=== PATIENT | male | born 1940 | race Caucasian/White ===

== ENCOUNTER 2021-11-10 16:43 | Observation (INO) | payer MEDICARE, BC ==
[~2021-11-10 16:43] MED LIST: Iopamidol 370 76% 100 ML VIAL ONE
[2021-11-10 17:26] LABS: #Basophils 0.1 10x3/uL (0.0-0.2); #Monocytes 0.7 10x3/uL (0.0-1.1); #Neutrophils 7.4 10x3/uL (1.5-8.4); %Basophils 0.6 % (0.0-2.0); %Eosinophils 0.5 % (0.0-6.0); %Lymphocytes 8.3 % (18.0-47.0); %Monocytes 7.3 % (0.0-10.0); %Neutrophils 83.1 % (40.0-75.0); Hemoglobin 16.6 g/dL (13.5-17.5); Mean Corpuscular HGB CONC 32.8 g/dL (32.0-36.0); Mean Corpuscular Hemoglobin 29.9 pg (27.0-33.0); Mean Corpuscular Volume 91.2 fl (81.2-95.1); Mean Platelet Volume 9.1 fl (7.4-10.4); Platelet Count 138 10x3/uL (150-450); RBC Distribution Width 13.7 % (11.5-14.5); Red Blood Cell (RBC) Count 5.55 10x6/uL (4.32-5.72); White Blood Cell (WBC) Count 8.9 10x3/uL (3.5-10.5)
[2021-11-10 17:38] LABS: ALT (SGPT) 17 U/L (8-55); AST (SGOT) 17 U/L (5-34); Albumin 4.5 g/dL (3.4-4.8); Alkaline Phosphatase 44 U/L (40-110); Anion Gap 19 mmol/L (10-20); BUN (Urea Nitrogen) 30 mg/dL (8.4-25.7); Bilirubin, Total 0.8 mg/dL (0.2-1.2); Calc. Creatinine Clearance 0 mL/min (70-130); Calcium 10.3 mg/dL (7.8-10.44); Carbon Dioxide 23 mmol/L (23-31); Chloride 102 mmol/L (98-107); Globulin 2.9 g/dL (2.4-3.5); Glucose 147 mg/dL (83-110); Lipase 25 U/L (8-78); Potassium 5.6 mmol/L (3.5-5.1); Protein, Total 7.4 g/dL (5.8-8.1); Sodium 138 mmol/L (136-145)
[2021-11-10] MEDS ORDERED: Morphine 4 MG/ML VIAL ONE ×2 (19:12→21:00)
[2021-11-10] MEDS ORDERED: Ondansetron PF 4 MG/2 ML Vial ONE (19:13)
[2021-11-10 23:12] LABS: SARS-CoV-2 NAA Rapid Test Not Detected (NotDetected)
[2021-11-10 23:59] LABS: Troponin I 0.019 ng/mL (< 0.028)
[2021-11-11 00:50] VITALS: BMI 23.0
[2021-11-11] MEDS ORDERED: Carvedilol 6.25 MG TAB PO SCH ×2 (02:30→08:00)
[2021-11-11] MEDS ORDERED: Sotalol HCl 80 MG TAB PO SCH ×2 (02:30→09:00)
[2021-11-11] MEDS ORDERED: Zolpidem Tartrate 5 MG TAB PO SCH ×2 (02:30→21:00)
[2021-11-11] MEDS ORDERED: Atorvastatin Calcium 10 MG TAB PO SCH ×2 (02:30→21:00)
[2021-11-11] MEDS ORDERED: Sodium Chloride 0.65% Nasal 44 ML BOT EA NARE PRN (08:31)
[2021-11-11] MEDS ORDERED: Labetalol HCl 100 MG/20 ML VIAL SLOW IVP PRN (08:31)
[2021-11-11] MEDS ORDERED: hydrALAZINE 20 MG/ML VIAL SLOW IVP PRN (08:31)
[2021-11-11] MEDS ORDERED: Morphine 2 MG/ML VIAL SLOW IVP PRN (08:31)
[2021-11-11] MEDS ORDERED: HYDROcodone/Acetaminophen 5/325 mg Tablet PO PRN (08:31)
[2021-11-11] MEDS ORDERED: Acetaminophen 500 MG TAB PO PRN (08:31)
[2021-11-11] MEDS ORDERED: Artificial Tear Sol 15 ML BOT EA EYE PRN (08:31)
[2021-11-11] MEDS ORDERED: Carvedilol 3.125 MG TAB PO SCH ×2 (08:45→17:00)
[2021-11-11] MEDS ORDERED: Alogliptin 6.25 MG TAB PO SCH (09:00)
[2021-11-11] MEDS ORDERED: Empagliflozin 10 MG TAB PO SCH (09:00)
[2021-11-11] MEDS ORDERED: Losartan Potassium 50 MG TAB PO SCH (09:00)
[2021-11-11] MEDS ORDERED: Finasteride 5 MG TAB PO SCH ×2 (09:00→21:00)
[2021-11-11] MEDS ORDERED: Enoxaparin Sodium 40 MG/0.4 ML SYRINGE SC SCH (09:00)
[2021-11-11] MEDS ORDERED: Aspirin Chewable 81 MG TAB PO SCH (09:00)
[2021-11-11 16:49] VITALS: TEMP 97.8
[2021-11-11 17:43] VITALS: BP 90/45
== END 2021-11-11 17:00 | disposition home or self-care (01) ==
LOC: CSHERS 16:43 → CSHTELE 23:36
PROVIDERS: ADMIT Internal Medicine; ATTEND Family Medicine
DX: R07.9 Chest pain, unspecified (principal); I25.10 Atherosclerotic heart disease of native coronary artery without angina pectoris; E87.5 Hyperkalemia; E11.9 Type 2 diabetes mellitus without complications; I49.5 Sick sinus syndrome; I50.9 Heart failure, unspecified; I10 Essential (primary) hypertension; N17.9 Acute kidney failure, unspecified; E78.5 Hyperlipidemia, unspecified; Z86.718 Personal history of other venous thrombosis and embolism; Z79.01 Long term (current) use of anticoagulants; Z95.1 Presence of aortocoronary bypass graft; Z79.4 Long term (current) use of insulin
CPT/HCPCS: 71275; 74174; 80053; 80061; 82962; 83690; 84484 ×3; 85025; 93005; 96372; 96374; 96375; 96376; 99285; G0378 ×3; U0002; 36415; 36416; J1650; J2270; J2405; Q9967

== ENCOUNTER 2021-12-05 07:25 | Outpatient (CLI) | payer MEDICARE, BC | END 2021-12-05 07:26 | disposition home or self-care (01) | LOC: CSHULT 07:25 | PROVIDERS: ATTEND Internal Medicine | DX: R10.11 Right upper quadrant pain (principal); K82.8 Other specified diseases of gallbladder | CPT/HCPCS: 76705 ==

== ENCOUNTER 2022-01-22 07:36 | Day surgery (SDC) | payer MEDICARE, BC ==
[2022-01-19 14:22] VITALS: BMI 22.6
[2022-01-22] MEDS ORDERED: Bupivacaine 0.25% HCL 30 ML VIAL ONE (09:49)
[2022-01-22] MEDS ORDERED: EPINEPHrine 1 MG/ML AMP ONE (09:50)
[2022-01-22] MEDS ORDERED: CEFAZOLIN 2 GM VIAL ONE (10:33)
[2022-01-22] MEDS ORDERED: Ondansetron PF 4 MG/2 ML Vial ONE (10:37)
[2022-01-22] MEDS ORDERED: PROPOFOL 20 ML ONE (10:37)
[2022-01-22] MEDS ORDERED: Lidocaine 1% PF 5 ML VIAL ONE (10:37)
[2022-01-22] MEDS ORDERED: Dexamethasone 4 mg/ml Vial ONE (10:37)
[2022-01-22] MEDS ORDERED: Rocuronium Bromide 10 MG/ML (10ML VIAL) ONE (10:37)
[2022-01-22] MEDS ORDERED: Fentanyl 100 MCG/2 ML VIAL ONE ×2 (10:37→12:27)
[2022-01-22] MEDS ORDERED: Fentanyl 100 MCG/2 ML VIAL SLOW IVP SCH (11:30)
[2022-01-22] MEDS ORDERED: SUGAMMADEX SODIUM 200 MG/2 ML VIAL ONE (11:37)
[2022-01-22] MEDS ORDERED: HYDROcodone/Acetaminophen 5/325 mg Tablet PO PRN (12:33)
[2022-01-22] MEDS ORDERED: Acetaminophen 325 MG TAB PO PRN (12:33)
[2022-01-22] MEDS ORDERED: HYDROcodone/Acetaminophen 5/325 mg Tablet ONE (13:34)
== END 2022-01-22 13:50 | disposition home or self-care (01) ==
LOC: CSHSDC 07:36
PROVIDERS: ATTEND Surgery
PROC: 0FT44ZZ Resection of Gallbladder, Percutaneous Endoscopic Approach (ICD-10-PCS; principal; 2022-01-22)
DX: K80.10 Calculus of gallbladder with chronic cholecystitis without obstruction (principal); K66.0 Peritoneal adhesions (postprocedural) (postinfection); E11.21 Type 2 diabetes mellitus with diabetic nephropathy; I13.0 Hypertensive heart and chronic kidney disease with heart failure and stage 1 through stage 4 chronic kidney disease, or unspecified chronic kidney disease; I50.22 Chronic systolic (congestive) heart failure; E11.22 Type 2 diabetes mellitus with diabetic chronic kidney disease; N18.31 Chronic kidney disease, stage 3a; E78.5 Hyperlipidemia, unspecified; I25.10 Atherosclerotic heart disease of native coronary artery without angina pectoris; K21.9 Gastro-esophageal reflux disease without esophagitis; Z20.822 Contact with and (suspected) exposure to COVID-19; Z79.82 Long term (current) use of aspirin; Z79.899 Other long term (current) drug therapy
CPT/HCPCS: 47562; 82962; C1776; 36416; 88304; J0171; J0690; J1100; J2405; J2704; J3010; S0020

== ENCOUNTER 2022-03-01 15:12 | Inpatient (IN) | payer MEDICARE, BC ==
[~2022-03-01 15:12] MED LIST changes: +Iopamidol 300 61% 100 ML VIAL FS ONE; -Iopamidol 370 76% 100 ML VIAL ONE
[2022-03-01 16:08] LABS: #Monocytes 0.5 10x3/uL (0.0-1.1); #Neutrophils 7.3 10x3/uL (1.5-8.4); %Basophils 0.5 % (0.0-2.0); %Eosinophils 0.5 % (0.0-6.0); %Lymphocytes 5.8 % (18.0-47.0); %Monocytes 5.6 % (0.0-10.0); %Neutrophils 87.4 % (40.0-75.0); Hemoglobin 16.3 g/dL (13.5-17.5); Mean Corpuscular HGB CONC 32.6 g/dL (32.0-36.0); Mean Corpuscular Hemoglobin 29.1 pg (27.0-33.0); Mean Corpuscular Volume 89.3 fl (81.2-95.1); Mean Platelet Volume 9.5 fl (7.4-10.4); Platelet Count 156 10x3/uL (150-450); RBC Distribution Width 15.9 % (11.5-14.5); White Blood Cell (WBC) Count 8.4 10x3/uL (3.5-10.5)
[2022-03-01 16:26] LABS: ALT (SGPT) 677 U/L (8-55); AST (SGOT) 1069 U/L (5-34); Albumin 4.3 g/dL (3.4-4.8); Alkaline Phosphatase 253 U/L (40-110); Anion Gap 18 mmol/L (10-20); BUN (Urea Nitrogen) 30 mg/dL (8.4-25.7); Bilirubin, Total 3.4 mg/dL (0.2-1.2); Calc. Creatinine Clearance 0 mL/min (70-130); Calcium 9.5 mg/dL (7.8-10.44); Carbon Dioxide 21 mmol/L (23-31); Chloride 106 mmol/L (98-107); Estimated GFR 49; Globulin 2.5 g/dL (2.4-3.5); Glucose 129 mg/dL (83-110); Protein, Total 6.8 g/dL (5.8-8.1); Sodium 140 mmol/L (136-145)
[2022-03-01 16:40] LABS: Lipase 5157 U/L (8-78)
[2022-03-01] MEDS ORDERED: Morphine 4 MG/ML VIAL ONE (18:05)
[2022-03-01] MEDS ORDERED: Ondansetron PF 4 MG/2 ML Vial ONE (18:05)
[2022-03-01] MEDS: Sodium Chloride 0.9% 1,000 ML IV SCH (19:00)
[2022-03-01 20:33] LABS: Magnesium 1.7 mg/dL (1.6-2.6)
[2022-03-01] MEDS ORDERED: Carvedilol 3.125 MG TAB PO SCH (21:00)
[2022-03-01] MEDS ORDERED: Atorvastatin Calcium 40 MG TAB ONE (21:22)
[2022-03-01] MEDS ORDERED: Carvedilol 3.125 MG TAB ONE (21:23)
[2022-03-01] MEDS ORDERED: Zolpidem Tartrate 5 MG TAB PO SCH (21:30)
[2022-03-01] MEDS ORDERED: Zolpidem Tartrate 5 MG TAB ONE (21:37)
[2022-03-01] MEDS: Atorvastatin Calcium 40 MG TAB PO SCH (21:44)
[2022-03-01] MEDS: Sotalol HCl 80 MG TAB PO SCH (21:45)
[2022-03-01] MEDS ORDERED: Piperacillin/Tazobactam 3.375 GM in Sodium Chloride 0.9% 100 ML IVPB SCH ×3 (21:45→23:59)
[2022-03-01] MEDS: Finasteride 5 MG TAB PO SCH (21:45)
[2022-03-01] MEDS ORDERED: Piperacillin/Tazobactam 3.375 GM VIAL ONE (23:39)
[2022-03-02] MEDS: Morphine 2 MG/ML VIAL SLOW IVP PRN ×2 (00:17→22:01)
[2022-03-02] MEDS ORDERED: Morphine 2 MG/ML VIAL ONE (00:23)
[2022-03-02] MEDS ORDERED: Piperacillin/Tazobactam 3.375 GM in Sodium Chloride 0.9% 100 ML IVPB SCH (02:00)
[2022-03-02] MEDS ORDERED: Piperacillin/Tazobactam 3.375 GM VIAL ONE ×2 (03:09→13:00)
[2022-03-02] MEDS: Piperacillin/Tazobactam 3.375 GM in Sodium Chloride 0.9% 100 ML IVPB SCH ×3 (03:18→21:59)
[2022-03-02 03:52] LABS: SARS-CoV-2 NAA Rapid Test Not Detected (NotDetected)
[2022-03-02] MEDS: Sodium Chloride 0.9% 1,000 ML IV SCH ×3 (04:01→21:58)
[2022-03-02 04:14] LABS: ALT (SGPT) 550 U/L (8-55); AST (SGOT) 535 U/L (5-34); Alkaline Phosphatase 175 U/L (40-110); Anion Gap 13 mmol/L (10-20); BUN (Urea Nitrogen) 29 mg/dL (8.4-25.7); Bilirubin, Total 4.4 mg/dL (0.2-1.2); Calc. Creatinine Clearance 0 mL/min (70-130); Calcium 8.5 mg/dL (7.8-10.44); Carbon Dioxide 21 mmol/L (23-31); Cardiac Risk 2.2 (Less than 4.5); Chloride 108 mmol/L (98-107); Cholesterol 59 mg/dl (< 200 Desired); Estimated GFR 50; Glucose 93 mg/dL (83-110); HDL Cholesterol 27 mg/dL (>60 Neg Risk); LDL Cholesterol, Calculated 22 mg/dL; Potassium 3.8 mmol/L (3.5-5.1); Sodium 138 mmol/L (136-145); Triglycerides 49 mg/dL (Less than 150)
[2022-03-02 04:15] LABS: #Monocytes 0.9 10x3/uL (0.0-1.1); #Neutrophils 7.2 10x3/uL (1.5-8.4); %Basophils 0.2 % (0.0-2.0); %Eosinophils 0.3 % (0.0-6.0); %Lymphocytes 6.5 % (18.0-47.0); %Monocytes 10.2 % (0.0-10.0); %Neutrophils 82.5 % (40.0-75.0); Hemoglobin 13.5 g/dL (13.5-17.5); Mean Corpuscular HGB CONC 33.4 g/dL (32.0-36.0); Mean Corpuscular Hemoglobin 29.3 pg (27.0-33.0); Mean Corpuscular Volume 87.8 fl (81.2-95.1); Mean Platelet Volume 10.5 fl (7.4-10.4); Platelet Count 106 10x3/uL (150-450); RBC Distribution Width 16.3 % (11.5-14.5); White Blood Cell (WBC) Count 8.8 10x3/uL (3.5-10.5)
[2022-03-02 04:53] LABS: Lipase 2949 U/L (8-78)
[2022-03-02] MEDS ORDERED: Carvedilol 3.125 MG TAB ONE (08:02)
[2022-03-02] MEDS: Carvedilol 3.125 MG TAB PO SCH ×2 (08:30→22:01)
[2022-03-02] MEDS ORDERED: Aspirin 81 mg Enteric Coated Tablet ONE (09:41)
[2022-03-02] MEDS ORDERED: Enoxaparin Sodium 40 MG/0.4 ML SYRINGE ONE (09:41)
[2022-03-02] MEDS: Enoxaparin Sodium 40 MG/0.4 ML SYRINGE SC SCH (10:30)
[2022-03-02] MEDS: Aspirin Chewable 81 MG TAB PO SCH (10:30)
[2022-03-02] MEDS: Sotalol HCl 80 MG TAB PO SCH ×2 (10:30→22:01)
[2022-03-02 15:16] LABS: INR-International Normal Ratio 1.3; Prothrombin Time 13.7 sec (9.5-12.1)
[2022-03-02] MEDS ORDERED: Iopamidol 15 ML ONE (15:18)
[2022-03-02] MEDS ORDERED: Indomethacin 50 MG SUPP ONE (15:18)
[2022-03-02 16:41] VITALS: BMI 21.9
[2022-03-02] MEDS ORDERED: Dextrose 50% Abboject 50 ML SYRINGE ONE (17:41)
[2022-03-02] MEDS ORDERED: FLU VACC QS2022-23(65YR UP)/PF 240 MCG/0.7 ML SYRINGE IM ONE (18:00)
[2022-03-02] MEDS ORDERED: PHENYLEPHRINE-NS 100 MCG/ML 10 ML SYRINGE ONE (18:17)
[2022-03-02] MEDS ORDERED: Ondansetron PF 4 MG/2 ML Vial ONE (18:29)
[2022-03-02] MEDS ORDERED: Dexamethasone 4 mg/ml Vial ONE (18:29)
[2022-03-02] MEDS ORDERED: ePHEDrine Sulfate 50 MG/10 ML VIAL ONE (19:15)
[2022-03-02] MEDS ORDERED: Zolpidem Tartrate 5 MG TAB PO SCH (21:45)
[2022-03-02] MEDS: Atorvastatin Calcium 40 MG TAB PO SCH (22:01)
[2022-03-02] MEDS: Finasteride 5 MG TAB PO SCH (22:01)
[2022-03-03] MEDS: Sodium Chloride 0.9% 1,000 ML IV SCH (03:47)
[2022-03-03] MEDS: Piperacillin/Tazobactam 3.375 GM in Sodium Chloride 0.9% 100 ML IVPB SCH ×3 (03:48→20:58)
[2022-03-03 06:09] LABS: ALT (SGPT) 348 U/L (8-55); AST (SGOT) 199 U/L (5-34); Albumin 3.1 g/dL (3.4-4.8); Alkaline Phosphatase 157 U/L (40-110); Anion Gap 19 mmol/L (10-20); BUN (Urea Nitrogen) 39 mg/dL (8.4-25.7); Bilirubin, Direct 1.8 mg/dL (0.1-0.3); Bilirubin, Total 2.5 mg/dL (0.2-1.2); Calc. Creatinine Clearance 37 mL/min (70-130); Calcium 8.4 mg/dL (7.8-10.44); Carbon Dioxide 14 mmol/L (23-31); Chloride 107 mmol/L (98-107); Estimated GFR 43; Globulin 2.3 g/dL (2.4-3.5); Glucose 113 mg/dL (83-110); Potassium 4.6 mmol/L (3.5-5.1); Protein, Total 5.4 g/dL (5.8-8.1); Sodium 135 mmol/L (136-145)
[2022-03-03] MEDS: Sotalol HCl 80 MG TAB PO SCH ×2 (10:31→21:10)
[2022-03-03] MEDS: Aspirin Chewable 81 MG TAB PO SCH (10:31)
[2022-03-03] MEDS: Enoxaparin Sodium 40 MG/0.4 ML SYRINGE SC SCH (10:31)
[2022-03-03] MEDS: Carvedilol 3.125 MG TAB PO SCH ×2 (10:31→16:40)
[2022-03-03] MEDS ORDERED: Dextrose 5% in Water 1,000 ML IV PRN (15:50)
[2022-03-03] MEDS ORDERED: Dextrose 50% Abboject 50 ML SYRINGE SLOW IVP PRN (15:50)
[2022-03-03] MEDS: HumaLOG 300 UNITS/3 ML VIAL SC PRN ×2 (16:40→21:12)
[2022-03-03] MEDS ORDERED: Lantus 1000 UNITS/10 ML VIAL ONE (20:36)
[2022-03-03] MEDS: Finasteride 5 MG TAB PO SCH (20:56)
[2022-03-03] MEDS: Atorvastatin Calcium 40 MG TAB PO SCH (20:57)
[2022-03-03] MEDS ORDERED: Lantus 1000 UNITS/10 ML VIAL SC SCH (21:00)
[2022-03-03] MEDS ORDERED: Zolpidem Tartrate 5 MG TAB PO PRN (22:54)
[2022-03-04] MEDS: Piperacillin/Tazobactam 3.375 GM in Sodium Chloride 0.9% 100 ML IVPB SCH ×3 (04:10→15:07)
[2022-03-04 05:17] LABS: Hemoglobin 13.2 g/dL (13.5-17.5); Mean Corpuscular Hemoglobin 28.8 pg (27.0-33.0); Mean Corpuscular Volume 87.1 fl (81.2-95.1); Mean Platelet Volume 10.3 fl (7.4-10.4); Platelet Count 116 10x3/uL (150-450); RBC Distribution Width 16.4 % (11.5-14.5); Red Blood Cell (RBC) Count 4.59 10x6/uL (4.32-5.72); White Blood Cell (WBC) Count 6.2 10x3/uL (3.5-10.5)
[2022-03-04 05:18] LABS: #Monocytes 0.6 10x3/uL (0.0-1.1); #Neutrophils 5.2 10x3/uL (1.5-8.4); %Basophils 0.2 % (0.0-2.0); %Eosinophils 0.2 % (0.0-6.0); %Lymphocytes 7.5 % (18.0-47.0); %Monocytes 9.9 % (0.0-10.0); %Neutrophils 81.9 % (40.0-75.0)
[2022-03-04 05:29] LABS: ALT (SGPT) 222 U/L (8-55); AST (SGOT) 69 U/L (5-34); Albumin 3.1 g/dL (3.4-4.8); Alkaline Phosphatase 124 U/L (40-110); Anion Gap 16 mmol/L (10-20); BUN (Urea Nitrogen) 46 mg/dL (8.4-25.7); Bilirubin, Total 0.9 mg/dL (0.2-1.2); Calc. Creatinine Clearance 31 mL/min (70-130); Calcium 8.4 mg/dL (7.8-10.44); Carbon Dioxide 15 mmol/L (23-31); Chloride 109 mmol/L (98-107); Estimated GFR 35; Globulin 2.2 g/dL (2.4-3.5); Glucose 224 mg/dL (83-110); Potassium 4.4 mmol/L (3.5-5.1); Protein, Total 5.3 g/dL (5.8-8.1); Sodium 136 mmol/L (136-145)
[2022-03-04] MEDS: HumaLOG 300 UNITS/3 ML VIAL SC PRN (09:36)
[2022-03-04] MEDS: Carvedilol 3.125 MG TAB PO SCH (09:37)
[2022-03-04] MEDS: Sotalol HCl 80 MG TAB PO SCH (09:37)
[2022-03-04] MEDS: Aspirin Chewable 81 MG TAB PO SCH (09:37)
[2022-03-04] MEDS: Enoxaparin Sodium 40 MG/0.4 ML SYRINGE SC SCH (09:37)
[2022-03-04 15:28] LABS: Anion Gap 13 mmol/L (10-20); BUN (Urea Nitrogen) 41 mg/dL (8.4-25.7); Calc. Creatinine Clearance 35 mL/min (70-130); Calcium 8.5 mg/dL (7.8-10.44); Carbon Dioxide 19 mmol/L (23-31); Chloride 111 mmol/L (98-107); Estimated GFR 41; Glucose 207 mg/dL (83-110); Potassium 4.6 mmol/L (3.5-5.1); Sodium 138 mmol/L (136-145)
[2022-03-04 21:49] VITALS: BP 109/60; TEMP 97.8
== END 2022-03-04 16:50 | disposition home or self-care (01) | DRG 439 ==
LOC: CSHERS 15:12 → CSHERHOLD 18:35 → CSHTELE 03-02 16:31
PROVIDERS: ADMIT Internal Medicine; ATTEND Family Medicine
PROC: 0FC98ZZ Extirpation of Matter from Common Bile Duct, Via Natural or Artificial Opening Endoscopic (ICD-10-PCS; principal; 2022-03-02)
PROC: 0D798ZZ Dilation of Duodenum, Via Natural or Artificial Opening Endoscopic (ICD-10-PCS; 2022-03-02)
PROC: BF101ZZ Fluoroscopy of Bile Ducts using Low Osmolar Contrast (ICD-10-PCS; 2022-03-02)
PROC: 3E033XZ Introduction of Vasopressor into Peripheral Vein, Percutaneous Approach (ICD-10-PCS; 2022-03-02)
DX: K85.10 Biliary acute pancreatitis without necrosis or infection (principal); I13.0 Hypertensive heart and chronic kidney disease with heart failure and stage 1 through stage 4 chronic kidney disease, or unspecified chronic kidney disease; I50.22 Chronic systolic (congestive) heart failure; K31.5 Obstruction of duodenum; I25.10 Atherosclerotic heart disease of native coronary artery without angina pectoris; I25.5 Ischemic cardiomyopathy; N40.0 Benign prostatic hyperplasia without lower urinary tract symptoms; E78.5 Hyperlipidemia, unspecified; F17.210 Nicotine dependence, cigarettes, uncomplicated; N18.31 Chronic kidney disease, stage 3a; Z20.822 Contact with and (suspected) exposure to COVID-19; E11.22 Type 2 diabetes mellitus with diabetic chronic kidney disease; I25.2 Old myocardial infarction; Z95.0 Presence of cardiac pacemaker; Z95.1 Presence of aortocoronary bypass graft; Z95.5 Presence of coronary angioplasty implant and graft; Z79.899 Other long term (current) drug therapy; Z79.82 Long term (current) use of aspirin; Z79.84 Long term (current) use of oral hypoglycemic drugs
CPT/HCPCS: 36415; 36416; 71045; 74177; 74330; 80048; 80053; 80061; 82247; 82248; 83690; 83735; 83880; 84075; 84450; 84460; 84484; 85025; 85379; 85610; 85730; 93005; 94760; C1725; J1100; J1650; J1815; J2270; J2405; J2543; J3490; J7050; J7999; Q9967; U0002

== ENCOUNTER 2022-07-16 12:29 | Outpatient (CLI) | payer MEDICARE, BC | END 2022-07-16 12:30 | disposition home or self-care (01) | LOC: CSHRAD 12:29 | PROVIDERS: ATTEND Internal Medicine | DX: R13.10 Dysphagia, unspecified (principal) | CPT/HCPCS: 74220 ==

== ENCOUNTER 2022-08-13 13:00 | Inpatient (IN) | payer MEDICARE, BC ==
[2022-08-13 13:36] LABS: #Eosinphils 0.1 10x3/uL (0.0-0.5); #Monocytes 0.2 10x3/uL (0.0-1.1); #Neutrophils 4.3 10x3/uL (1.5-8.4); %Basophils 0.4 % (0.0-2.0); %Eosinophils 1.2 % (0.0-6.0); %Lymphocytes 6.2 % (18.0-47.0); %Monocytes 4.7 % (0.0-10.0); %Neutrophils 87.3 % (40.0-75.0); Mean Corpuscular HGB CONC 32.3 g/dL (32.0-36.0); Mean Corpuscular Volume 89.9 fl (81.2-95.1); Mean Platelet Volume 9.7 fl (7.4-10.4); Platelet Count 126 10x3/uL (150-450); RBC Distribution Width 18.3 % (11.5-14.5); Red Blood Cell (RBC) Count 6.21 10x6/uL (4.32-5.72); White Blood Cell (WBC) Count 4.9 10x3/uL (3.5-10.5)
[2022-08-13 13:41] LABS: ALT (SGPT) 148 U/L (8-55); AST (SGOT) 152 U/L (5-34); Albumin 3.7 g/dL (3.4-4.8); Alkaline Phosphatase 217 U/L (40-110); Anion Gap 18 mmol/L (10-20); BUN (Urea Nitrogen) 41 mg/dL (8.4-25.7); Bilirubin, Total 1.8 mg/dL (0.2-1.2); Calc. Creatinine Clearance 0 mL/min (70-130); Calcium 7.2 mg/dL (7.8-10.44); Carbon Dioxide 22 mmol/L (23-31); Chloride 102 mmol/L (98-107); Estimated GFR 37; Glucose 182 mg/dL (83-110); Lipase 27 U/L (8-78); Potassium 5.8 mmol/L (3.5-5.1); Protein, Total 5.7 g/dL (5.8-8.1); Sodium 136 mmol/L (136-145)
[2022-08-13 14:08] LABS: CKMB 2.8 ng/mL (0-6.6)
[2022-08-13] MEDS ORDERED: Cefepime 2 GM VIAL ONE (15:30)
[2022-08-13] MEDS ORDERED: VANCOMYCIN 1.25 GM/250 ML BAG 1.25 GM in Premix Bag 1 BAG IVPB SCH (17:00)
[2022-08-13] MEDS ORDERED: Ketorolac Tromethamine 30 MG/ML VIAL ONE (17:12)
[2022-08-13 17:40] LABS: Bilirubin Neg (Negative); Blood, Urine 10 (Negative); Clarity Clear (Clear); Glucose, Urine (Dipstick) >=1000 mg/dL (Negative); Ketone, Urine Negative (Negative); Leukocyte Negative (Negative); Nitrite Negative (Negative); Protein, Urine (Dipstick) Negative (Neg-Trace); Specific Gravity, Urine 1.015 (1.005-1.030)
[2022-08-13 17:50] LABS: Bacteria/HPF Rare-Few HPF (None Seen); RBC/HPF 0-3 HPF (0-3); Squamous Epithelial None Seen HPF (0-3); Transitional Epithelial 0-3 HPF (None Seen); WBC/HPF 0-3 HPF (0-3)
[2022-08-13 18:18] LABS: SARS-CoV-2 NAA Rapid Test Not Detected (NotDetected)
[2022-08-13 18:41] LABS: Lactic Acid 1.4 mmol/L (0.5-2.2)
[2022-08-13] MEDS ORDERED: metroNIDAZOLE 500 MG/100 ML BAG ONE (19:15)
[2022-08-13] MEDS ORDERED: HYDROcodone/Acetaminophen 5/325 mg Tablet PO PRN (20:04)
[2022-08-13] MEDS ORDERED: Acetaminophen 325 MG TAB PO PRN (20:04)
[2022-08-13] MEDS ORDERED: Calcium Carbonate 500 MG ChewTAB PO PRN (20:04)
[2022-08-13] MEDS ORDERED: Guaifenesin DM 100-10/5 ML UDCUP PO PRN (20:04)
[2022-08-13] MEDS ORDERED: Pharmacy to Dose ABX/VANCOMYCIN IVPB PRN (20:12)
[2022-08-13] MEDS ORDERED: Morphine 2 MG/ML VIAL SLOW IVP PRN (20:45)
[2022-08-13] MEDS ORDERED: Morphine 2 MG/ML VIAL ONE (20:47)
[2022-08-13] MEDS ORDERED: Furosemide 40 MG/4 ML VIAL ONE (21:13)
[2022-08-13] MEDS ORDERED: Nitroglycerin 2% Ointment 1 INCH/1 GM Packet ONE (22:00)
[2022-08-13] MEDS ORDERED: Lorazepam 2 MG/ML VIAL ONE ×2 (22:30→23:00)
[2022-08-13 22:34] LABS: ALT (SGPT) 224 U/L (8-55); AST (SGOT) 270 U/L (5-34); Albumin 3.5 g/dL (3.4-4.8); Alkaline Phosphatase 215 U/L (40-110); Anion Gap 22 mmol/L (10-20); BUN (Urea Nitrogen) 41 mg/dL (8.4-25.7); Bilirubin, Total 2.2 mg/dL (0.2-1.2); Calc. Creatinine Clearance 0 mL/min (70-130); Calcium 7.5 mg/dL (7.8-10.44); Carbon Dioxide 19 mmol/L (23-31); Chloride 104 mmol/L (98-107); Estimated GFR 35; Globulin 2.5 g/dL (2.4-3.5); Glucose 141 mg/dL (83-110); Magnesium 1.7 mg/dL (1.6-2.6); Potassium 5.9 mmol/L (3.5-5.1); Sodium 139 mmol/L (136-145)
[2022-08-13] MEDS ORDERED: Dextrose 5% in Water 1,000 ML IV PRN (22:50)
[2022-08-13] MEDS ORDERED: Dextrose 50% Abboject 50 ML SYRINGE SLOW IVP PRN (22:50)
[2022-08-13 22:57] LABS: CKMB 2.1 ng/mL (0-6.6)
[2022-08-13] MEDS ORDERED: Nitroglycerin 2% Ointment 1 INCH/1 GM Packet TOP SCH (23:00)
[2022-08-13] MEDS ORDERED: Furosemide 100 MG/10 ML VIAL SLOW IVP SCH (23:00)
[2022-08-13] MEDS ORDERED: Zolpidem Tartrate 5 MG TAB PO SCH (23:00)
[2022-08-13] MEDS ORDERED: Insulin Regular 300 UNITS/3 ML VIAL IVP SCH (23:00)
[2022-08-13] MEDS ORDERED: Lorazepam 2 MG/ML VIAL SLOW IVP SCH (23:00)
[2022-08-13] MEDS ORDERED: Dextrose 50% Abboject 50 ML SYRINGE SLOW IVP SCH (23:00)
[2022-08-13] MEDS ORDERED: Calcium Gluc 4.6 MEQ/10 ML (100 MG/ML) SLOW IVP SCH (23:00)
[2022-08-13] MEDS ORDERED: LOKELMA 10 GM PACKET PO SCH (23:00)
[2022-08-13] MEDS ORDERED: Finasteride 5 MG TAB PO SCH (23:15)
[2022-08-13] MEDS ORDERED: Sotalol HCl 80 MG TAB PO SCH (23:15)
[2022-08-13] MEDS ORDERED: Lantus 1000 UNITS/10 ML VIAL SC SCH (23:15)
[2022-08-13] MEDS ORDERED: Calcium Gluc 4.6 MEQ/10 ML (100 MG/ML) ONE (23:16)
[2022-08-13] MEDS ORDERED: Vancomycin Dose by Levels Sliding Scale (Wt <71) FS SCH (23:30)
[2022-08-13] MEDS ORDERED: Insulin Regular 300 UNITS/3 ML VIAL ONE (23:41)
[2022-08-14 04:02] LABS: Hemoglobin 14.8 g/dL (13.5-17.5); Mean Corpuscular HGB CONC 32.8 g/dL (32.0-36.0); Mean Corpuscular Hemoglobin 28.8 pg (27.0-33.0); Mean Corpuscular Volume 87.9 fl (81.2-95.1); Platelet Count 90 10x3/uL (150-450); RBC Distribution Width 16.9 % (11.5-14.5); Red Blood Cell (RBC) Count 5.13 10x6/uL (4.32-5.72); White Blood Cell (WBC) Count 7.1 10x3/uL (3.5-10.5)
[2022-08-14 04:03] LABS: #Neutrophils 5.7 10x3/uL (1.5-8.4); %Basophils 0.3 % (0.0-2.0); %Lymphocytes 5.2 % (18.0-47.0); %Monocytes 14.2 % (0.0-10.0); %Neutrophils 80.2 % (40.0-75.0)
[2022-08-14 04:15] LABS: ALT (SGPT) 195 U/L (8-55); AST (SGOT) 216 U/L (5-34); Albumin 2.9 g/dL (3.4-4.8); Alkaline Phosphatase 159 U/L (40-110); Anion Gap 15 mmol/L (10-20); BUN (Urea Nitrogen) 43 mg/dL (8.4-25.7); Bilirubin, Total 1.5 mg/dL (0.2-1.2); Calc. Creatinine Clearance 0 mL/min (70-130); Calcium 7.1 mg/dL (7.8-10.44); Carbon Dioxide 21 mmol/L (23-31); Chloride 105 mmol/L (98-107); Estimated GFR 34; Glucose 189 mg/dL (83-110); Lipase 12 U/L (8-78); Potassium 4.2 mmol/L (3.5-5.1); Protein, Total 4.9 g/dL (5.8-8.1); Sodium 137 mmol/L (136-145)
[2022-08-14 04:37] LABS: CKMB 1.7 ng/mL (0-6.6)
[2022-08-14 06:00] LABS: Actual Bicarbonate (HCO3a) 15.8 mEq/L (22-28); Base Excess (BEa) -7.3 mEq/L (-2.0 to +3.0); CO2 Tension 27.4 mmHg (35.0-45.0); Calcium, Ionized (arterial) 0.95 mmol/L (1.12-1.30); Carboxyhemoglobin (COHb) 0.3 gm% (0.0-3.0); Hemoglobin (Hb) 17.9 g/dL (14.0-18.0); O2 Tension (PaO2), arterial 516.5 mmHg (> 60.0); Puncture Site RRA; pH, Arterial 7.38 (7.35-7.45)
[2022-08-14] MEDS ORDERED: Piperacillin/Tazobactam 4.5 GM in Sodium Chloride 0.9% 100 ML IVPB SCH (06:00)
[2022-08-14] MEDS ORDERED: Cefepime 1 GM VIAL ONE (07:33)
[2022-08-14] MEDS: Cefepime 1 GM in Sodium Chloride 0.9% 100 ML IVPB SCH ×2 (07:40→17:42)
[2022-08-14] MEDS ORDERED: Furosemide 40 MG/4 ML VIAL SLOW IVP SCH (08:00)
[2022-08-14] MEDS ORDERED: Magnesium Sulfate 4 GM in Sodium Chloride 0.9% 250 ML 250 ML IVPB SCH (08:00)
[2022-08-14] MEDS ORDERED: Magnesium 2 GM/50 ML(in water) 2 GM in Premix Bag 1 BAG IVPB SCH (08:00)
[2022-08-14] MEDS ORDERED: Vancomycin 1 GM in Premix Bag 1 BAG IVPB SCH (08:00)
[2022-08-14] MEDS ORDERED: metroNIDAZOLE 500 MG/100 ML BAG ONE (08:06)
[2022-08-14] MEDS ORDERED: Magnesium 2 GM/50 ML BAG (IN WATER) ONE ×2 (08:08→08:50)
[2022-08-14] MEDS ORDERED: Furosemide 40 MG/4 ML VIAL ONE (08:08)
[2022-08-14] MEDS: metroNIDAZOLE 500 MG in Premix Bag 1 BAG IVPB SCH ×3 (08:10→21:40)
[2022-08-14] MEDS: Magnesium 2 GM/50 ML(in water) 2 GM in Premix Bag 1 BAG IVPB SCH ×2 (08:22→09:27)
[2022-08-14] MEDS: Cinacalcet HCl 30 MG TAB PO SCH (08:24)
[2022-08-14] MEDS ORDERED: Aspirin Chewable 81 MG TAB ONE (08:51)
[2022-08-14] MEDS ORDERED: Empagliflozin 10 MG TAB PO SCH (09:00)
[2022-08-14] MEDS: Aspirin Chewable 81 MG TAB PO SCH (09:05)
[2022-08-14] MEDS: Sotalol HCl 80 MG TAB PO SCH ×2 (09:05→21:39)
[2022-08-14] MEDS: Furosemide 40 MG/4 ML VIAL SLOW IVP SCH (15:24)
[2022-08-14 17:22] VITALS: BMI 24.0
[2022-08-14 17:44] LABS: Vancomycin, Random 10.9 ug/mL (See Comment)
[2022-08-14] MEDS: HumaLOG 300 UNITS/3 ML VIAL SC PRN (18:27)
[2022-08-14] MEDS: Lantus 1000 UNITS/10 ML VIAL SC SCH (21:00)
[2022-08-14] MEDS: Zolpidem Tartrate 5 MG TAB PO SCH (21:39)
[2022-08-14] MEDS: Finasteride 5 MG TAB PO SCH (21:40)
[2022-08-14] MEDS ORDERED: Vancomycin HCl 1 GM in Sodium Chloride 0.9% 250 ML 250 ML IVPB SCH (22:00)
[2022-08-14] MEDS ORDERED: Vancomycin Dose by Levels Sliding Scale (Wt 71-99) FS SCH (22:00)
[2022-08-15] MEDS ORDERED: metroNIDAZOLE 500 MG/100 ML BAG ONE (04:52)
[2022-08-15] MEDS: Cefepime 1 GM in Sodium Chloride 0.9% 100 ML IVPB SCH ×2 (05:16→16:59)
[2022-08-15] MEDS: Furosemide 40 MG/4 ML VIAL SLOW IVP SCH ×2 (05:17→15:17)
[2022-08-15 05:21] LABS: Hemoglobin 15.1 g/dL (13.5-17.5); Mean Corpuscular HGB CONC 32.8 g/dL (32.0-36.0); Mean Corpuscular Volume 88.7 fl (81.2-95.1); Mean Platelet Volume 10.3 fl (7.4-10.4); Platelet Count 92 10x3/uL (150-450); RBC Distribution Width 17.1 % (11.5-14.5); White Blood Cell (WBC) Count 8.2 10x3/uL (3.5-10.5)
[2022-08-15 05:35] LABS: ALT (SGPT) 144 U/L (8-55); AST (SGOT) 91 U/L (5-34); Albumin 2.9 g/dL (3.4-4.8); Alkaline Phosphatase 150 U/L (40-110); Anion Gap 17 mmol/L (10-20); BUN (Urea Nitrogen) 41 mg/dL (8.4-25.7); Bilirubin, Direct 0.9 mg/dL (0.1-0.3); Bilirubin, Total 1.3 mg/dL (0.2-1.2); Calc. Creatinine Clearance 35 mL/min (70-130); Calcium 7.8 mg/dL (7.8-10.44); Carbon Dioxide 23 mmol/L (23-31); Chloride 100 mmol/L (98-107); Estimated GFR 37; Glucose 94 mg/dL (83-110); Protein, Total 5.1 g/dL (5.8-8.1); Sodium 136 mmol/L (136-145)
[2022-08-15 05:39] LABS: MDiff Complete? YES
[2022-08-15 05:43] LABS: Band 9 % (5-11); Lymphocytes 8 % (21-51); Monocytes 15 % (0-10); Neutrophil 68 % (42-75)
[2022-08-15 05:45] LABS: Platelet Morphology Comment Appears Decreased
[2022-08-15] MEDS: metroNIDAZOLE 500 MG in Premix Bag 1 BAG IVPB SCH ×3 (06:18→22:01)
[2022-08-15] MEDS: Cinacalcet HCl 30 MG TAB PO SCH (08:58)
[2022-08-15] MEDS: Aspirin Chewable 81 MG TAB PO SCH (08:59)
[2022-08-15] MEDS: Sotalol HCl 80 MG TAB PO SCH ×2 (08:59→20:33)
[2022-08-15] MEDS: HumaLOG 300 UNITS/3 ML VIAL SC PRN (16:59)
[2022-08-15] MEDS: Finasteride 5 MG TAB PO SCH (20:33)
[2022-08-15] MEDS: Zolpidem Tartrate 5 MG TAB PO SCH (20:36)
[2022-08-15] MEDS: Lantus 1000 UNITS/10 ML VIAL SC SCH (20:37)
[2022-08-15] MEDS: Ondansetron PF 4 MG/2 ML Vial IVP PRN (22:15)
[2022-08-15 22:29] LABS: Vancomycin, Random 11.1 ug/mL (See Comment)
[2022-08-15] MEDS ORDERED: Vancomycin HCl 1 GM in Sodium Chloride 0.9% 250 ML 250 ML IVPB SCH (23:59)
[2022-08-16 04:53] LABS: Anion Gap 15 mmol/L (10-20); BUN (Urea Nitrogen) 35 mg/dL (8.4-25.7); Calc. Creatinine Clearance 40 mL/min (70-130); Calcium 7.5 mg/dL (7.8-10.44); Carbon Dioxide 21 mmol/L (23-31); Chloride 102 mmol/L (98-107); Estimated GFR 43; Glucose 137 mg/dL (83-110); Phosphorus 3.2 mg/dL (2.3-4.7); Potassium 3.4 mmol/L (3.5-5.1); Sodium 135 mmol/L (136-145)
[2022-08-16] MEDS: Cefepime 1 GM in Sodium Chloride 0.9% 100 ML IVPB SCH (05:31)
[2022-08-16] MEDS: Furosemide 40 MG/4 ML VIAL SLOW IVP SCH ×2 (05:31→15:39)
[2022-08-16] MEDS: metroNIDAZOLE 500 MG in Premix Bag 1 BAG IVPB SCH (06:05)
[2022-08-16] MEDS: Cinacalcet HCl 30 MG TAB PO SCH (08:14)
[2022-08-16] MEDS: Aspirin Chewable 81 MG TAB PO SCH (08:14)
[2022-08-16] MEDS: Empagliflozin 10 MG TAB PO SCH (08:14)
[2022-08-16] MEDS: Sotalol HCl 80 MG TAB PO SCH ×2 (08:14→21:34)
[2022-08-16] MEDS: Senokot S 8.6-50 MG TAB PO PRN ×2 (08:24→21:34)
[2022-08-16] MEDS: HumaLOG 300 UNITS/3 ML VIAL SC PRN (11:06)
[2022-08-16] MEDS ORDERED: Potassium Chloride 20 MEQ TAB PO SCH (11:30)
[2022-08-16] MEDS: Ondansetron PF 4 MG/2 ML Vial IVP PRN (15:39)
[2022-08-16] MEDS: Zolpidem Tartrate 5 MG TAB PO SCH (21:33)
[2022-08-16] MEDS: Lantus 1000 UNITS/10 ML VIAL SC SCH (21:34)
[2022-08-16] MEDS: Finasteride 5 MG TAB PO SCH (21:34)
[2022-08-17] MEDS: Furosemide 40 MG/4 ML VIAL SLOW IVP SCH (05:55)
[2022-08-17] MEDS ORDERED: Potassium Chloride 20 MEQ TAB PO SCH (08:00)
[2022-08-17 08:48] LABS: ALT (SGPT) 132 U/L (8-55); AST (SGOT) 77 U/L (5-34); Albumin 3.2 g/dL (3.4-4.8); Alkaline Phosphatase 377 U/L (40-110); Anion Gap 17 mmol/L (10-20); BUN (Urea Nitrogen) 31 mg/dL (8.4-25.7); Bilirubin, Total 2.8 mg/dL (0.2-1.2); Calc. Creatinine Clearance 39 mL/min (70-130); Calcium 8.1 mg/dL (7.8-10.44); Carbon Dioxide 24 mmol/L (23-31); Chloride 98 mmol/L (98-107); Estimated GFR 43; Globulin 2.8 g/dL (2.4-3.5); Glucose 180 mg/dL (83-110); Potassium 3.8 mmol/L (3.5-5.1); Sodium 135 mmol/L (136-145)
[2022-08-17] MEDS: Aspirin Chewable 81 MG TAB PO SCH (09:28)
[2022-08-17] MEDS: Empagliflozin 10 MG TAB PO SCH (09:28)
[2022-08-17] MEDS: Cinacalcet HCl 30 MG TAB PO SCH (09:28)
[2022-08-17] MEDS: Sotalol HCl 80 MG TAB PO SCH (09:29)
[2022-08-17] MEDS: HumaLOG 300 UNITS/3 ML VIAL SC PRN (12:40)
[2022-08-17 14:31] VITALS: BP 110/69; TEMP 97.8
[2022-08-18] MEDS ORDERED: Furosemide 40 MG TAB PO SCH (07:30)
== END 2022-08-17 15:15 | disposition home or self-care (01) | DRG 291 ==
LOC: CSHERS 13:00 → CSHERHOLD 22:51 → CSHTELE 08-14 12:29
PROVIDERS: ADMIT Student in an Organized Health Care Education/Training Program; ATTEND Internal Medicine
PROC: 4A033R1 Measurement of Arterial Saturation, Peripheral, Percutaneous Approach (ICD-10-PCS; principal; 2022-08-13)
DX: I13.0 Hypertensive heart and chronic kidney disease with heart failure and stage 1 through stage 4 chronic kidney disease, or unspecified chronic kidney disease (principal); I50.43 Acute on chronic combined systolic (congestive) and diastolic (congestive) heart failure; J96.01 Acute respiratory failure with hypoxia; N17.9 Acute kidney failure, unspecified; E87.20 Acidosis, unspecified; N18.4 Chronic kidney disease, stage 4 (severe); I25.5 Ischemic cardiomyopathy; Z20.822 Contact with and (suspected) exposure to COVID-19; E78.5 Hyperlipidemia, unspecified; E87.5 Hyperkalemia; E87.6 Hypokalemia; I25.10 Atherosclerotic heart disease of native coronary artery without angina pectoris; D63.1 Anemia in chronic kidney disease; N40.0 Benign prostatic hyperplasia without lower urinary tract symptoms; E11.22 Type 2 diabetes mellitus with diabetic chronic kidney disease; M54.50 Low back pain, unspecified; Z90.49 Acquired absence of other specified parts of digestive tract; Z95.810 Presence of automatic (implantable) cardiac defibrillator; Z79.82 Long term (current) use of aspirin; Z79.4 Long term (current) use of insulin; Z79.899 Other long term (current) drug therapy; Z95.1 Presence of aortocoronary bypass graft; Z98.49 Cataract extraction status, unspecified eye; Z82.49 Family history of ischemic heart disease and other diseases of the circulatory system; Z87.891 Personal history of nicotine dependence; I25.2 Old myocardial infarction
CPT/HCPCS: 36415; 36416; 36600; 71045; 74176; 80048; 80053; 80076; 80202; 81003; 81015; 82306; 82553; 82805; 83605; 83690; 83735; 83880; 83970; 84100; 84484; 85025; 87040; 87086; 93005; 94760; 94762; 96365; 96366; 96367; 96375; J0610; J0692; J1650; J1815; J1885; J1940; J2060; J2272; J2405; J3370; J3475; J3490; J7050; J7999

== ENCOUNTER 2022-09-17 14:29 | Emergency (ER) | payer MEDICARE, BC ==
[2022-09-17 16:02] LABS: Bilirubin Neg (Negative); Blood, Urine 25 (Negative); Clarity Slightly Cloudy (Clear); Glucose, Urine (Dipstick) >=1000 mg/dL (Negative); Ketone, Urine Negative (Negative); Leukocyte 500 (Negative); Nitrite Negative (Negative); Protein, Urine (Dipstick) Negative (Neg-Trace); Specific Gravity, Urine 1.015 (1.005-1.030); Urobilinogen Normal mg/dL (Less than 2)
[2022-09-17 16:24] LABS: Bacteria/HPF Rare-Few HPF (None Seen); RBC/HPF 0-3 HPF (0-3); Squamous Epithelial None Seen HPF (0-3); WBC/HPF Greater than 50 HPF (0-3); White Blood Cell Cast 0-3 LPF (None Seen); Yeast-Budding 3+ HPF (None Seen)
== END 2022-09-17 17:37 | disposition home or self-care (01) ==
LOC: CSHERS 14:29
DX: N39.0 Urinary tract infection, site not specified (principal); N43.3 Hydrocele, unspecified; N50.811 Right testicular pain; I25.10 Atherosclerotic heart disease of native coronary artery without angina pectoris; E11.9 Type 2 diabetes mellitus without complications; E78.5 Hyperlipidemia, unspecified; I11.0 Hypertensive heart disease with heart failure; I50.9 Heart failure, unspecified
CPT/HCPCS: 76870; 81003; 81015; 93976